=== PATIENT | female | born 1930 | race Caucasian/White ===

== ENCOUNTER 2018-02-11 12:36 | Day surgery (SDC) | payer MEDICARE, OTHER ==
[~2018-02-11 12:36] MED LIST: Lactated Ringers 1,000 ML IV SCH; Sodium Chloride 0.9% 10 ML Syringe FLUSH PRN
[2018-02-11] MEDS ORDERED: fentaNYL 100 MCG/2 ML SDV ONE ×2 (13:42→13:53)
[2018-02-11] MEDS ORDERED: Midazolam 1 MG/ML 2 ML SDV ONE ×2 (13:42→13:53)
[2018-02-11] MEDS ORDERED: Propofol 200 MG/20 ML SDV ONE ×2 (13:42→13:53)
[2018-02-11] MEDS ORDERED: Lidocaine 2% 100 MG/5 ML Syringe ONE (13:53)
--- NOTE | 2018-02-11 13:55 | PCM.PN ---
- General Info Date of Service: 02/11/18 - Review of Systems Systems Review Comment:: 87-year-old female referred by Emeli Michelle from the [facility] because of esophageal foreign body. This patient states that she was eating supper yesterday at about 4 PM when after finishing some meat she found she could not swallow water. This symptom has persisted overnight and even today she has been unable to swallow any water or her saliva. She denies any chest or abdominal pain. She also denies any history of dysphasia prior to this event. She is medically stable to proceed today. Her history and physical of earlier today is reviewed. I discussed the proposed EGD with removal of esophageal foreign body with the patient. Indications and risks are reviewed. These included but were not limited to bleeding and esophageal injury. She agrees to proceed. - Patient Data Vitals - Most Recent: Last Vital Signs Temp 98.1 F 02/11/18 13:25 Pulse 87 02/11/18 13:25 Resp 18 02/11/18 13:25 BP 149/81 H 02/11/18 13:25 Pulse Ox 99 02/11/18 13:25 Weight - Most Recent: 60.328 kg Med Orders - Current: Current Medications Lactated Ringer's (Ringers, Lactated) 1,000 mls @ 125 mls/hr IV ASDIRECTED VERONIKA Last Admin: 02/11/18 13:25 Dose: 125 mls/hr Sodium Chloride (Saline Flush) 10 ml FLUSH ASDIRECTED PRN PRN Reason: Keep Vein Open Discontinued Medications Fentanyl (Sublimaze) Confirm Administered Dose 100 mcg .ROUTE .STK-MED ONE Stop: 02/11/18 13:43 Midazolam HCl (Versed 1 Mg/Ml) Confirm Administered Dose 2 mg .ROUTE .STK-MED ONE Stop: 02/11/18 13:43 Propofol (Diprivan 20 Ml) Confirm Administered Dose 200 mg .ROUTE .STK-MED ONE Stop: 02/11/18 13:43 - Problem List Review Problem List Initiated/Reviewed/Updated: Yes - My Orders Last 24 Hours: My Active Orders 02/11/18 11:36 Patient Status [ADT] Routine Verify Patient Consent Obtain [RC] ASDIRECTED Sodium Chloride 0.9% [Saline Flush] 10 ml FLUSH ASDIRECTED PRN Peripheral IV Insertion Adult [OM.PC] Routine 02/11/18 11:37 Peripheral IV Care [RC] . DIRECTED 02/11/18 11:45 Lactated Ringers [Ringers, Lactated] 1,000 ml IV ASDIRECTED - Assessment Assessment:: Esophageal foreign body - Plan Plan:: EGD with removal of esophageal foreign body
--- NOTE | 2018-02-11 14:16 | PCM.OPNOTE ---
- General Post-Op/Procedure Note Date of Surgery/Procedure: 02/11/18 Operative Procedure(s): EGD with balloon esophageal dilation Findings: Benign appearing distal esophageal stricture with recently passed food bolus noted in stomach Pre Op Diagnosis: Esophageal foreign body (food) Post-Op Diagnosis: Distal esophageal stricture. Recently passed food bolus Anesthesia Technique: MAC Primary Surgeon: Sarmad Borges Pathology: none Output, Urine Amount: 0 EBL in mLs: 5 Complications: None Condition: Good
--- NOTE | 2018-02-11 16:34 | OR ---
Date of Procedure: 02/11/2018 PREOPERATIVE DIAGNOSIS: Esophageal foreign body. POSTOPERATIVE DIAGNOSIS: Distal esophageal stricture with recently passed esophageal foreign body. OPERATION PERFORMED: Esophagogastroduodenoscopy with balloon esophageal dilation. INDICATIONS FOR SURGERY: This 87-year-old female who denied any previous symptoms of dysphagia, presented with inability to swallow after supper last night. She was diagnosed with a likely food bolus causing obstruction of the esophagus and she is referred for upper endoscopy. FINDINGS: In the esophagus, the patient was noted to have a distal esophageal stricture at the level of the GE junction of moderate severity. This appeared to be benign with no visible evidence of malignancy. In the stomach was a food bolus with a shape consistent of it having recently evacuated from the esophagus. The stomach and duodenum otherwise appeared normal as did the remainder of the esophagus. DESCRIPTION OF PROCEDURE: The patient was taken to the operating room. She was given intravenous sedation, and with her in the left lateral decubitus position, after throat had been topically anesthetized, the esophagus was intubated via a mouth guard with the Olympus gastroscope. The examination of the oropharyngeal region did not reveal any evidence of foreign body. The esophagus was intubated under direct visualization and the scope was advanced down through the esophagus and then easily into the stomach. No foreign body was noted in the esophagus, although there was a stricture noted at the level of the GE junction. In the body of the stomach was a food bolus with a shape suggesting that it had just recently passed out of the esophagus and into the stomach. The scope was then advanced through the stomach down into the duodenum, where examination to the 4th portion was performed. This appeared normal. The scope was withdrawn back into the stomach where full examination including retroflexed examination of the fundus was carried out. Because of the presence of the esophageal stricture, in order to try and limit the chance of this event recurring, balloon dilation was then carried out. The Cook esophageal 8x18 balloon dilator of a 54-Yi size was then selected. It was passed through the gastroscope, and after testing the balloon, the balloon was inflated to a pressure of 1.8 atmospheres. The balloon was then deflated and examination of the GE junction was carried out. The stricture did appear to have been dilated and there was a moderate amount of heme noted, although no evidence of esophageal injury was identified. This did appear to have dilated the stricture, so no further dilation was performed. The balloon was removed. Careful examination of the stomach and esophagus was carried out and then the scope was removed. The patient was then awakened, taken from the operating room in satisfactory condition. ESTIMATED BLOOD LOSS: 5 mL. COMPLICATIONS: None. PROGNOSIS: Good. ARPITA Borges MD /[id number] MTDD
== END 2018-02-11 15:42 | disposition home or self-care (01) ==
LOC: LL.SDS 12:36
PROVIDERS: ATTEND Surgery
DX: K22.2 Esophageal obstruction (principal)
CPT/HCPCS: J2250; J2704; J3010; J7120